=== PATIENT | female | born 1960 | race Caucasian/White ===

== ENCOUNTER 2016-12-10 13:04 | Observation (INO) | payer OTHER ==
[~2016-12-10] VITALS: Ht 157.5 cm; Wt 108.4 kg
[~2016-12-10 13:04] MED LIST: NOMED
[2016-12-10 13:36] VITALS: BP 136/75; PULSE 88; RESP 18; O2SAT 98
--- NOTE | 2016-12-10 13:39 | ED.REPORT ---
HPI-Extremity Problem Lower Date of Service Dec 10, 2016 ED Provider: Dr. Guerra Pt is a 56 y/o female presenting to the ED via EMS c/o right hip pain secondary to mechanical ground level fall at 11:30. The fall occurred because she missed the last stair step at work and fell onto her right hip. She has been able to bear weight but has not been able to ambulate since the injury. She is not on anticoagulants. Pt denies any other sites of injury or pain, syncope, numbness or weakness of the RLE. Nursing Notes Stated Complaint: GLF Chief Complaint: Extremity Trauma Nursing Notes Reviewed: Yes Allergies: Coded Allergies: No Known Allergies (Verified , 12/10/16) Miscellaneous Medications No Historical Medication (No Historical Medication) Ea General Time Seen by MD: 13:39 Chief Complaint Hip injury right Hx Obtained From: Patient, EMS Arrived By: Ambulance Onset Occurred: 1 - 4 hours ago Symptom Duration: Since onset Caused by: Fall on ground Location: : Hip right Quality: Painful Severity: Current: Moderate Severity: Maximum: Moderate Exacerbated by: Range of motion Recent Healthcare: No recent doctor visit, No recent hospitalization Similar Sx Previous: No Past Medical History Past Medical History None reported Past Surgical History None reported Smoking History Unknown if Ever Smoker Ambulatory Status Independent Review of Systems Constitutional: Denies: Chills, Fever Musculoskeletal: Reports: Extremity pain, Joint pain, Denies: Extremity swelling Skin: Denies Diaphoresis, Denies Rash Neurologic: Denies: Numbness, Syncope, Weakness Complete sys rev & neg: except as marked. Respiratory: Denies: Non-productive cough, Shortness of breath Cardiovascular: Denies: Chest pain, Palpitations, Syncope GI: Denies: Abdominal pain, Diarrhea, Nausea, Vomiting Physical Exam Initial Vital Signs Vital Signs (First) Date Time Temp Pulse Resp B/P Pulse Ox O2 Delivery O2 Flow Rate FiO2 12/10/16 13:36 36.6 88 18 136/75 98 Room Air Initial VS: Reviewed, Vital signs normal Head / Eyes: Atraumatic, Normocephalic, PERRL ENT: Mucous membranes moist, Conjunctiva normal, No scleral icterus Neck: Supple, Full range of motion Respiratory: Breath sounds normal, Clear to auscultation, No respiratory distress Cardiovascular: Regular rate & rhythm, Heart sounds normal, Intact distal pulses Abdomen / GI: Soft, Non-tender, No guarding, No rebound, No distention Upper Extremities: Vascular intact, Neuro intact, No swelling, No tenderness Skin: Warm, Dry, No cyanosis Neurologic: Alert, Oriented, Nonfocal Psychiatric: Mood/affect normal, Behavior normal, Normal thought content Lower Extremity / Pelvis / MS: No deformity, Neurologic intact, Vascular intact , No compartment syndrome, No edema, Pelvis stable RLE: No shortening, no rotation Right hip mildly tender to touch Interpretation & Diagnostics Interpretation & Diagnostics: MRI pelvis- non contrast 1. Multiple nondisplaced fractures of the pelvic ring including fractures of the left superior pubic ramus medially, right superior pubic ramus at the junction with the acetabulum, and the right sacral ala. 2. Muscle strains in the adductor compartment bilaterally. 3. Edema in the left femoral head as well as a probable geode along the superior articular surface likely associated with osteoarthritic changes. X-Ray Interpretation Xray Interpretation: IMPRESSION: 1. No displaced right fracture is evident. 2. Mild degenerative changes of the right hip. 3. Moderate degenerative changes of the left hip have significantly progressed since 2012. Lucency involving the left femoral head probably is degenerative. However, dedicated CT or MR imaging on a nonemergent basis is recommended for further evaluation. Dictated by: Dale Pate M.D. on 12/10/2016 at 13:38 Approved by: Dale Pate M.D. on 12/10/2016 at 13:39 X-Ray Ordered: Pelvis, Hip right Interpretation / Wet Read by: Interpret - Radiologist Re-Eval/Medical Decision Source of Hx: EMS Re-Evaluation/Progress : Time of Eval: 15:39 Re-Evaluation/Progress Note: Failed road test. Will obtain MR of pelvis. She agrees with plan. Consultation #1: Referral / Consult Name: Aravind Terrell MD Consulted With: Orthopedic Drafter Chief Design: Will see patient Note: Case discussed and imaging reviewed. Stable fractures not expected to cause significant bleeding. Admit to hospitalist, check CBC in am. Consultation #2: Referral / Consult Name: Danny Anaya MD Consulted With: Hospitalist Drafter Chief Design: Accepts admit Counseled Regarding: Diagnosis Discharge & Departure Impression: Primary Impression: Pelvic fracture Encounter type: initial encounter Pelvic bone location: multiple parts Fracture type: closed Fracture alignment: without disruption of pelvic ring Qualified Code: S32.82XA - Multiple fractures of pelvis without disruption of pelvic ring, initial encounter for closed fracture Disposition: ADMITTED TO HOSPITAL Discharge Condition All VS Reviewed: Yes Condition: Stable Referrals: Cammy Groves (PCP) Miguel Attestation Portions of this note were transcribed by Stalin Brar. I, Dr. Guerra personally performed the history, physical exam and medical decision-making; I reviewed and confirmed the accuracy of the information in the transcribed note. Signed by Miguel Israel, 12/10/16 - 1400 copies to: Cammy Groves Donald L MD Dec 10, 2016 13:39 STALIN BRAR Dec 10, 2016 13:46
[2016-12-10] MEDS ORDERED: oxyCODONE-Acetamin 5-325 mg Tablet PO ONE (13:45)
--- NOTE | 2016-12-10 14:41 | DRSVH ---
PROCEDURE: X-RAY PELVIS W/LAT HIP (RT) ([id number]) INDICATIONS: fall and R hip pain TECHNIQUE: AP pelvis with lateral view(s) of the right hip(s). COMPARISON: [facility], CT, ABD/PELVIS W/CON (PNL), 08/10/2013, 16:34. FINDINGS: Bones: No acute fracture or dislocation is evident involving the right hip. There are mild degenerat gregory changes of the right hip. No suspicious osseous lesions are present. Moderate degenerative pwoers ges of the left hip are present. Lucency overlying the femoral head probably is degenerative in natu re. There are at least mild degenerative changes of the imaged lower lumbar spine. Soft tissues: The visualized bowel gas pattern is normal. No suspicious soft tissue calcifications. IMPRESSION: 1. No displaced right fracture is evident. 2. Mild degenerative changes of the right hip. 3. Moderate degenerative changes of the left hip have significantly progressed since 2012. Lucency involving the left femoral head probably is degenerative. However, dedicated CT or MR imaging on a n onemergent basis is recommended for further evaluation. Dictated by: Dale Pate M.D. on 12/10/2016 at 13:38 Approved by: Dale Pate M.D. on 12/10/2016 at 13:39
[2016-12-10 16:28] VITALS: BP 128/74; PULSE 81; RESP 16; O2SAT 98
--- NOTE | 2016-12-10 19:12 | DRSVH ---
PROCEDURE: MRI PELVIS WITHOUT CONTRAST ([id number]) INDICATIONS: R hip pain/unable to amb post fall TECHNIQUE: Noncontrast coronal and axial T1 spin echo and STIR through the bony pelvis. COMPARISON: [facility], CR, XR PELVIS W LATERAL HIP RT, 12/10/2016, 14:04. FINDINGS: Image quality: Excellent. Bones: Bone marrow of the pelvic ring, sacrum, and proximal femurs demonstrate normal overall signal . There are relatively nondisplaced fractures of the left superior pubic ramus medially, the right s uperior ramus at the junction with the acetabulum, and the right sacral ala. No femoral neck fractur es. There is edema in the left femoral head associated with a prominent subchondral cyst along the s uperior articular surface. There is no extending along the superior articular surface with mild oste ophytosis. Subchondral edema is also noted in the left acetabulum. Tendons: The gluteus medius and minimus tendons appear intact, without associated muscle atrophy. T here is minimal peritendinous edema adjacent to the greater trochanter bilaterally. The nearby proxi mal iliotibial band also appears intact. The iliopsoas tendons appear intact, without adjacent bursa l fluid collections or evidence for impingement syndrome. The origin of the hamstring tendon is inta ct at the ischial tuberosity, as well as the associated sacrotuberous ligament. The straight and ref lected heads of the rectus femoris muscle origin appear intact, as well as the conjoint tendon. Soft tissues: There is edema within the adductor compartment bilaterally consistent with muscle strai ns. No joint effusions. No free pelvic fluid. Bladder wall thickness is normal. Genitourinary str uctures and bowel loops appear normal where visualized. IMPRESSION: 1. Multiple nondisplaced fractures of the pelvic ring including fractures of the left superior pubic ramus medially, right superior pubic ramus at the junction with the acetabulum, and the right sacral ala. 2. Muscle strains in the adductor compartment bilaterally. 3. Edema in the left femoral head as well as a probable geode along the superior articular surface l ikely associated with osteoarthritic changes. Dictated by: Pillo Chang M.D. on 12/10/2016 at 19:04 Approved by: Pillo Chang M.D. on 12/10/2016 at 19:10
[2016-12-10] MEDS ORDERED: Ondansetron 2 mg/mL 2 mL Inj IV PRN (19:30)
[2016-12-10 19:55] VITALS: BP 126/68; PULSE 76; RESP 15; O2SAT 98
[2016-12-10 20:10] LABS: BASOPHILS % (AUTO) 0.4 % (0-3); EOSINOPHILS % (AUTO) 0.8 % (0-5); MONOCYTES % (AUTO) 5.4 % (4-12); Mean Corpuscular Hemoglobin 26.4 pg (27.0-35.0); Mean Corpuscular Volume 82.6 fL (81-100); NEUTROPHILS % (AUTO) 72.7 % (40-74); Platelet Count 299 bil/L (150-400)
[2016-12-10] MEDS ORDERED: IBUP200C PO (20:19)
[2016-12-10] MEDS ORDERED: OXYM30SP18 NS (20:19)
[2016-12-10] MEDS ORDERED: Ondansetron 2 mg/mL 2 mL Inj IVPUSH PRN ×2 (20:40→21:45)
[2016-12-10] MEDS ORDERED: oxyCODONE-Acetamin 5-325 mg Tablet PO PRN (20:40)
[2016-12-10] MEDS ORDERED: Alum-Mag Hydrox-Simeth 30 mL Suspension PO PRN ×2 (20:40→21:45)
[2016-12-10 21:02] VITALS: BP 126/68; PULSE 76; RESP 15; O2SAT 98
[2016-12-10 21:29] VITALS: BP 119/79; PULSE 91; RESP 20; O2SAT 97
[2016-12-10] MEDS ORDERED: Polyethylene Glycol (PEG) 17 Gm Powder PO PRN (21:45)
--- NOTE | 2016-12-10 21:49 | PCM.HPMED ---
Subjective Date of Service Dec 10, 2016 Primary Provider: Admitting Physician: Danny Anaya MD Primary Care Physician: Nopcp Attending Physician: Danny Anaya MD Chief Complaint: fall R hip pain History of Present Illness: 56yo lady with no reported medical hx. walking down stairs tripped fell on R side. no LOC, no head trauma. no chest pain, lightheadedness. pain moderate to severe when moving, cannot ambulate. pain ok if she lies still. at baseline no exertional symptoms such as chest pain , lightheadenss, dyspnea. able to walk 2 blocks without rest. Review of Systems: Positive Review of Symptoms mentioned and elaborated on in HPI. Head: Denies H/A, trauma, loss of consciousness. Eyes: Denies visual loss, diplopia. Ears: Denies: deafness, tinnitis, discharge, pain Nose: Denies discharge, obstruction, epistaxis Mouth: Denies sores, gingival bleeding, jaw pain Neck: Denies stiffness, issues swallowing. Respiratory: Denies dyspnea, cough, sputum. Cardiovascular:Denies CP, palpitations, orthopnea, peripheral edema Gastrointestinal: Denies melena, abd pain, n/v/d Genitourinary: Denies dysuria, discharge. Skin: Denies: lesions, rashes, pruritus. Musculoskeletal: see hpi Neuro: Denies numbness, tingling, weakness. Psyc: Currently denies feelings of anxiety, depression. Allergies Coded Allergies: No Known Allergies (Verified , 12/10/16) Home Medications denies PMH denies Surgical History knee, wrist surgery Family History mom dm2 Social History Smoking Status: Unknown if Ever Smoker Exam Vital Signs Vital Sign - Last Date Time Temp Pulse Resp B/P Pulse Ox O2 Delivery O2 Flow Rate FiO2 12/10/16 21:29 36.6 91 20 119/79 97 Room Air Exam General: No acute distress. Awake, alert. Head: Normocephalic, atraumatic. Eyes: White sclera. Conjunctiva non-injected. Mouth & Throat: No Bleeding. No erythema, lesions, exudates visualized. Neck: No tender adenopathy. Trachea midline. Respiratory: Clear to auscultation bilaterally. Symmetric chest expansion. Regular work of breathing without use of accessory muscles. Cardiovascular: S1, S2. Regular rate and rhythm without murmurs, rubs or gallops. Pulses 2+ equal bilaterally. Abdomen: Normal bowel sounds x4 quadrants. Soft, non-tender, non-distended. Extremities: tenderness R hip, proximal femur. Skin: Intact, no lesions, no rash. Neurologic: Awake, alert, oriented x3. No focal deficits. Psychiatric: Appropriate mood and affect. Cooperative. Lab and Diagnostics Result Diagram: 12/10/16199912/10/161999 X-Rays, CTs and MRIs pelvis mri as read by the radiologist fashion editor: 1. Multiple nondisplaced fractures of the pelvic ring including fractures of the left superior pubic ramus medially, right superior pubic ramus at the junction with the acetabulum, and the right sacral ala. 2. Muscle strains in the adductor compartment bilaterally. 3. Edema in the left femoral head as well as a probable geode along the superior articular surface likely associated with osteoarthritic changes. Assessment & Plan -- fall -- Multiple nondisplaced fractures of the pelvic ring including fractures of the left superior pubic ramus medially, right superior pubic ramus at the junction with the acetabulum, and the right sacral ala. pain control, bedrest. dvt prophylaxis orthopedics called by admitting er physician will see in am. -- f/e/n: npo aftermidnight -- dvt prophylaxis: lovenox Dipso: Admit to obs with expected length of stay < 2 midnights. Danny Anaya MD Dec 10, 2016 21:49
[2016-12-10] MEDS: HYDROcodone-APAP 5-325 mg Tablet PO PRN (22:06)
[2016-12-11 01:12] VITALS: BP 107/70; PULSE 80; RESP 18; O2SAT 97
--- NOTE | 2016-12-11 01:49 | NUR ---
Arrival to unit Patient arrived to floor at 2120 from the ED via gurney. A slider board was used to transfer her to the hospital bed. Patient is A&OX3, and pleasant this evening. States that when lying still pain is very minimal, and has denied being turned to complete full assessment. Per report patient has denied an IV start as well at this time. Has been NPO since midnight and remains on bed rest. 1 tab norco PO has been given for pain and upon reassessment patient was sleeping and appears comfortable. Will continue to monitor, and continue Q1 hour checks. Bed locked and in low position and call light is within reach. Addendum: 12/11/16 at 0547 by HOLLY MILLAN RN This morning patient has refused using a bed swenson, and states that when she needs to go to the bathroom that she will let us know.
[2016-12-11 05:20] VITALS: BP 115/74; PULSE 87; RESP 18; O2SAT 95
[2016-12-11 06:07] LABS: BASOPHILS % (AUTO) 0.6 % (0-3); EOSINOPHILS % (AUTO) 2.4 % (0-5); MONOCYTES % (AUTO) 7.8 % (4-12); Mean Corpuscular Hemoglobin 26.3 pg (27.0-35.0); Mean Corpuscular Volume 83.6 fL (81-100); NEUTROPHILS % (AUTO) 55.5 % (40-74); Platelet Count 313 bil/L (150-400)
[2016-12-11 06:22] LABS: Magnesium 2.1 mg/dL (1.6-2.6)
[2016-12-11 10:00] VITALS: BP 114/76; PULSE 84; RESP 17; O2SAT 92
--- NOTE | 2016-12-11 11:25 | PCM.PNMED ---
Subjective Date of Service Dec 11, 2016 Subjective pain is relatively controlled at rest, but increase with movement, able to move her legs but weak. explained that this fracture needs conservative tx, agreed on plan Exam Vital Signs Vital Sign - Last Date Time Temp Pulse Resp B/P Pulse Ox O2 Delivery O2 Flow Rate FiO2 12/11/16 10:00 36.9 84 17 114/76 92 Room Air Intake and Output 12/10/16 12/10/16 12/11/16 Cumulative From/Thru 15:00 23:00 07:00 12/10/16 13:36 - 12/11/16 06:43 Intake Total 300 ml 300 ml Output Total 0 ml 0 ml Balance 300 ml 300 ml Intake Oral 300 ml 300 ml Output Urine Total 0 ml 0 ml # Voids 0 0 # Bowel Movements 0 0 Exam NAD, comfortably laying down on the bed no JVD, MMM, no LAD RRR, nl s1, s2 no mrg CTAB, no w,c S,ND,NT,normoactive BS+ warm, no edema, pulses 2/2 MSK: motor 4/5 bilaterally, limited due to pain, IVs and Medications Medications Reviewed: Medications were reviewed in detail Lab and Diagnostics Result Diagram: 12/11/16 0550 12/11/16 0550 X-Rays, CTs and MRIs pelvis mri as read by the radiologist labor relations representative: 1. Multiple nondisplaced fractures of the pelvic ring including fractures of the left superior pubic ramus medially, right superior pubic ramus at the junction with the acetabulum, and the right sacral ala. 2. Muscle strains in the adductor compartment bilaterally. 3. Edema in the left femoral head as well as a probable geode along the superior articular surface likely associated with osteoarthritic changes. Assessment & Plan 56yo lady with no reported medical hx presented after fall when walking down stairs, tripped fell on R side acute, active s/p fall, resultant pelvic fx, POA, CT showed Multiple nondisplaced fractures of the pelvic ring including fractures of the left superior pubic ramus medially , right superior pubic ramus at the junction with the acetabulum, and the right sacral ala. -will focus on pain control with naproxen, tylenol standing, -percocet prn for pain with movement, -start PT as tolerated dvt ppx: LMWH diet: regular dispo: 2-3more days VTE Mechanical Devices: Intermittant Pneumatic CD Time spent 35min Venita Euceda MD Dec 11, 2016 10:55
[2016-12-11] MEDS: HYDROcodone-APAP 5-325 mg Tablet PO PRN ×2 (12:37→17:41)
--- NOTE | 2016-12-11 13:11 | CONS ---
[address] [address] CONSULTATION REPORT PATIENT: ANTHONY MENDOZA : 1960 MR#: [id number] ADMIT: 12/10/2016 JOB ID: [id number] DATE OF SERVICE: 12/11/2016 INPATIENT CONSULTATION:ORTHOPEDIC CPT code 94020 CHIEF COMPLAINT: A 56-year-old female, whom I was asked to see in orthopedic consultation by emergency department staff as well as hospitalist service, Dr. Danny Anaya. The patient tripped down some stairs, falling onto her right side with no loss of consciousness. She sustained nondisplaced fractures of left superior pubic ramus, right superior pubic ramus, and the right sacral ala. There was no widening of the symphysis pubis. The patient was admitted to the hospital with pain and difficulty trying to ambulate due to significant discomfort. FAMILY HISTORY: Positive for a mother with diabetes mellitus. SOCIAL HISTORY: No history of smoking to knowledge. REVIEW OF SYSTEMS: Head: No headache, no dizziness. Eyes: No visual loss. Ears: No decreased hearing. Nose and throat: No pain. Respiratory: No shortness of breath. Cardiovascular: No chest pain. GI: No nausea, vomiting. : No dysuria. Musculoskeletal: Pain in the pelvis. No numbness in the legs. Neuro: No headache or dizziness. Psychiatric: No anxiety or depression. PHYSICAL EXAMINATION: A 157 cm tall, 108 kg female. Blood pressure 114/76, pulse is 17, respiration 84, temperature 36.9. The patient is alert and oriented. She has normal neurovascular exam, lower extremities. Minimal discomfort to palpation over the iliac wing area. Most of her pain is over the pubic rami region. Minimal discomfort over the right sacral area over the right SI joint.calves soft. Pulses full. Able to move both lower extremities.Able to move both hips well. The pain is mainly over the ischial tuberosities. LABORATORY TESTING: White count 11,000, hematocrit 38.5 and hemoglobin 12.3. Labs were repeated at white count of 8400, hemoglobin 12.2, and hematocrit of 38.8. She is stable hemodynamically. X-rays and the MRI show that she has a nondisplaced fracture of the left superior pubic ramus, right superior pubic ramus, and the right sacral ala. There is some subchondral edema along the left acetabulum. IMPRESSION: Nondisplaced pubic rami fractures. Small sacral ala fracture. PLAN: The patient may be mobilized with physical therapy with a rolling walker. The patient should also continue on DVT prophylaxis. Mobilizing the patient would be in her best interest. She may be seen again in followup in the orthopedic clinic at [facility] in about three weeks with repeat x-rays. She should use the rolling walker. CC: ANITA Orthopedic CC: Letty Hopkins
--- NOTE | 2016-12-11 13:54 | NUR ---
Activity Pt was refusing to let us turn her or get on a bed swenson. Pt stated that she didn't have any pain. Educated pt on pain medication use. I asked if she has pain when she is moving and she said it is a 2/10. Gave pt scheduled Tylenol, Flexeril, and naproxen. Pt stated she felt better. Encourage pt again to get oob and use BSC. Pre medicated pt with 1 [place] after educating pt on pain medication use again. Pt finally got oob and used BSC FWW SBA. Tolerated activity okay. Pt is afraid to move because of pain. Pt able to void 400. Brought pt water and educated her on keeping hydrated. Pt to see PT soon and will encourage pt to drink fluids and ambulate. Care continues.
--- NOTE | 2016-12-11 15:05 | NUR ---
Social Work- Brief Note Data: EMR reviewed. Pt is a 56 year old female admitted 12/10/16 for pelvic fracture per H&P. Pt's payor is [employer] with [employer] as secondary. Pt's PCP is [facility], but pt has not seen her new PCP since her last one retired. SW met with pt at bedside regarding discharge plan, SW role explained. Pt alert and oriented x3. 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 Additional family members live in a home on the property, where they are able to offer pt any support she may need at discharge. Pt has a walker and bedside commode available for use after discharge but does not use them at baseline. 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 Pt has no DPOA, declined further information. NOK is Iggy Manzano, . PT evaluation is pending. Pt to discharge home with to transport via POV. No anticipated discharge needs. SW will continue to follow if needs arise. 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 Plan: Pt to discharge home with to transport via POV. No anticipated discharge needs. SW will continue to follow. JH Scott
--- NOTE | 2016-12-11 15:21 | NUR ---
Evaluation completed. Please go to "Notes" then click on "Assessments and Notes" (bottom left corner of screen). Then select appropriate discipline tab on top of screen.
[2016-12-11 18:27] VITALS: BP 128/79; PULSE 95; RESP 18; O2SAT 94
[2016-12-11 20:25] VITALS: BP 127/81; PULSE 89; RESP 17; O2SAT 94
--- NOTE | 2016-12-12 03:35 | NUR ---
Activity At beginning of shift patient was encouraged to get up void. Patient denied needing to void and stated that she would let the nurse know when she needed assistance. Fluids have been heavily encouraged throughout the shift. At 0300, patient still had not voided, and so she was assisted to the bathroom, SBA with the FWW and was able to void 500cc of concentrated odorous urine. Patient denies burning, urgency, or discomfort. Again patient was encouraged to let nursing staff know when she needed to void, and to drink more fluids. Fresh ice water provided. Will continue education, and continue to monitor.
[2016-12-12 05:27] VITALS: BP 132/74; PULSE 81; RESP 17; O2SAT 95
[2016-12-12] MEDS ORDERED: Acetaminophen PO (11:25)
[2016-12-12] MEDS ORDERED: ENOX40DI8 SUBQ (11:25)
[2016-12-12] MEDS ORDERED: CYCL10TA9 PO (11:25)
[2016-12-12] MEDS ORDERED: NAPR250T PO (11:25)
[2016-12-12] MEDS ORDERED: PANT20T PO (11:25)
--- NOTE | 2016-12-12 11:28 | NUR ---
Social Work- Readiness for Discharge Data: EMR reviewed. Pt is on day 2 of hospitalization for pelvic fracture per H&P. Pt is not medically stable, anticipate discharge later today or tomorrow. PT saw patient, recommending stair training and further progression of ambulation. Pt has extensive family support at home. Pt to discharge home with to transport via POV. No anticipated discharge needs. SW will continue to follow if needs arise. 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 Plan: Pt to discharge home with to transport via POV. No anticipated discharge needs. SW will continue to follow. JH Scott
--- NOTE | 2016-12-12 11:29 | PCM.DIMED ---
Discharge Instructions Date of Service Dec 12, 2016 Dates of Hospitalization Dec 10, 2016 at 20:21 Discharge Diagnosis Discharge Diagnosis pelvic fracture s/p mechanical fall Medication Instructions Please take Naproxen, tylenol, Flexeril as directed for your pain, You were also given Protonix, please take with Naproxen to protect your stomach Diet No restrictions Activity No restrictions Patient Instructions You were hospitalized with fracture in your pelvis from fall, didn't require surgery, Pain was controlled well. Please note that you need to continue heparin shots to prevent blood clots forming given your limited mobility. This was recommended by Orthopedic surgeon. Follow-up plan Please follow up with in 3weeks Follow-up Provider: Aravind Terrell MD Follow-up with PCP in: 3 weeks Venita Euceda MD Dec 12, 2016 11:28
--- NOTE | 2016-12-12 13:55 | PCM.PNORTH ---
Subjective Date of Service: Dec 12, 2016 Visit Information: Reason for Visit Pelvic Fracture Surgery/Surgery Date Post-Op Day # Date of Admission: Dec 10, 2016 at 20:21 Hospital Day # 2 Subjective Patient states she is having no pain unless she is ambulating. She states she has gotten up to void her bladder multiple times throughout the night and into the morning and states it is painful but she is able to do it. She states she is feeling stronger today than yesterday. She has no concerns and all questions were answered. Postop General: No Complaints, No Shortness of Breath, No Chest Pain Pain Management: PO Objective Exam Objective Laying in bed Vital Signs and I/O Vital Sign - Last Date Time Temp Pulse Resp B/P Pulse Ox O2 Delivery O2 Flow Rate FiO2 12/12/16 05:27 36.6 81 17 132/74 95 Room Air Intake and Output 12/11/16 12/11/16 12/12/16 Cumulative From/Thru 14:59 22:59 06:59 12/10/16 13:36 - 12/12/16 05:27 Intake Total 0 ml 400 ml 700 ml Output Total 500 ml 500 ml Balance 0 ml -100 ml 200 ml Intake Oral 400 ml 700 ml IV Total 0 ml 0 ml Output Urine Total 500 ml 500 ml # Voids 0 # Bowel Movements 1 1 Result Diagram: 12/11/16 0550 12/11/16 0550 General Appearance: Alert, Oriented X3, Cooperative, No Acute Distress Extremities: Distal Pulses Palpable, No Compartment Syndrom Noted, Thigh & Calf Soft/Nontender Postop Sensory Motor: Distal Motor Intact, Movement in Toes, Distal Sensation Intact, NVI Distally Assessment & Plan Impression Nondisplaced pubic rami fractures. Small sacral ala fracture. Problems: Plan Weightbearing: Weightbearing as tolerated with a front wheeled walker. Continue oral pain management. Continue DVT prophy. Follow up at [facility] in 3 weeks with repeat xrays with Dr. Terrell. Lucretia Byrnes PA-C Dec 12, 2016 13:55
[2016-12-12] MEDS ORDERED: OXYC1TAB24 PO (14:17)
--- NOTE | 2016-12-12 14:40 | NUR ---
DISCHARGE Reviewed patient discharge information and instructions with patient. Verbalized understanding. Sent with hard copy Rx for pain medications and lovenox injections. Demonstrated how to administer lovenox injection during am administration. Patient verbalized understanding. Patient got dressed with minimal assistance. Stood and transferred into wheelchair with SBA. Taken outside to personal vehicle, left with all personal belongings.
--- NOTE | 2016-12-13 23:00 | PCM.DC.MED ---
Discharge Summary Date of Service Dec 12, 2016 Dates of Hospitalization Date of Hospital Admission Dec 10, 2016 at 20:21 Date of Discharge: Dec 12, 2016 Providers: Admitting Physician: Danny Anaya MD Primary Care Physician: Nopcyril Attending Physician: Danny Anaya MD Diagnosis at Time of Discharge Diagnosis at Time of Discharge pelvic fracture s/p mechanical fall Consultations Orthopedic Procedures XRay, CTs & MRIs pelvis mri as read by the radiologist filteration operator: 1. Multiple nondisplaced fractures of the pelvic ring including fractures of the left superior pubic ramus medially, right superior pubic ramus at the junction with the acetabulum, and the right sacral ala. 2. Muscle strains in the adductor compartment bilaterally. 3. Edema in the left femoral head as well as a probable geode along the superior articular surface likely associated with osteoarthritic changes. Brief History HPI obtained on 12/10 by 56yo lady with no reported medical hx. walking down stairs tripped fell on R side. no LOC, no head trauma. no chest pain, lightheadedness. pain moderate to severe when moving, cannot ambulate. pain ok if she lies still. at baseline no exertional symptoms such as chest pain , lightheadenss, dyspnea. able to walk 2 blocks without rest. Hospital Course 56yo lady with no reported medical hx presented after fall when walking down stairs, tripped fell on R side acute s/p fall, resultant pelvic fx, POA, CT showed Multiple nondisplaced fractures of the pelvic ring including fractures of the left superior pubic ramus medially , right superior pubic ramus at the junction with the acetabulum, and the right sacral ala. Pain was controlled with naproxen, tylenol, flexeril, rarely required percocet. Lovenox was also given for dvt ppx. Patient was consulted by Orthopedic, recommended conservative tx. patient was able to ambulate upon d/c. Exam Vital Signs (Last) Date Time Temp Pulse Resp B/P Pulse Ox O2 Delivery O2 Flow Rate FiO2 12/12/16 05:27 36.6 81 17 132/74 95 Room Air Exam NAD, comfortably laying down on the bed no JVD, MMM, no LAD RRR, nl s1, s2 no mrg CTAB, no w,c S,ND,NT,normoactive BS+ warm, no edema, pulses 2/2 MSK: motor 5/5 bilaterally,normal gait Test 12/10/16 20:00 12/11/16 05:50 Total Bilirubin 0.4mg/dL (0.0-1.2) Aspartate Amino Transf (AST/SGOT) 21U/L (0-50) Alanine Aminotransferase (ALT/SGPT) 24U/L (0-32) Alkaline Phosphatase 124U/L (25-150) Total Protein 7.2g/dL (6.4-8.4) Albumin 3.6g/dL (3.4-5.0) Hold Mathur Top Tube Received (Received) White Blood Count 8.4th/mm3 (3.8-10.1) Red Blood Count 4.64mil/mm3 (3.90-5.20) Hemoglobin 12.2g/dL (12.0-15.6) Hematocrit 38.8% (35.0-46.0) Mean Corpuscular Volume 83.6fL (81-100) Mean Corpuscular Hemoglobin 26.3pg (27.0-35.0) Mean Corpuscular Hemoglobin Concent 31.4% (32.0-37.0) Red Cell Distribution Width 15.1% (12.3-15.4) Platelet Count 313bil/L (150-400) Neutrophils (%) (Auto) 55.5% (40-74) Lymphocytes (%) (Auto) 33.1% (14-46) Monocytes (%) (Auto) 7.8% (4-12) Eosinophils (%) (Auto) 2.4% (0-5) Basophils (%) (Auto) 0.6% (0-3) Sodium Level 141mEq/L (134-144) Potassium Level 4.3mEq/L (3.5-5.2) Chloride Level 104mEq/L (97-108) Carbon Dioxide Level 23mmol/L (18-29) Blood Urea Nitrogen 9mg/dL (6-24) Creatinine 0.47mg/dL (0.57-1.00) Estimat Glomerular Filtration Rate 196mL/min (>59) Glucose Level 102mg/dL (60-99) Calcium Level 9.2mg/dL (8.5-10.1) Magnesium Level 2.1mg/dL (1.6-2.6) Discharge Medications Discharge Medications ([Acetaminophen]) 325 MG TABLET 650 MG PO Q6H Prescribed by: VENITA LYNCH MD Cyclobenzaprine (Cyclobenzaprine) 10 Mg Tablet 10 MG PO TID Prescribed by: VENITA LYNCH MD Enoxaparin Sodium (Enoxaparin Sodium) 40 Mg/0.4 Ml Syringe 40 MG SUBQ DAILY Prescribed by: VENITA LYNCH MD Naproxen (Naproxen) 250 Mg Tablet 500 MG PO BIDWM Prescribed by: VENITA LYNCH MD Pantoprazole DR (Protonix) 20 Mg Tablet 20 MG PO DAILY Prescribed by: VENITA LYNCH MD As needed Oxymetazoline HCl (Nasal Henderson Sinus) 30 Ml Henderson 1 SPRAY NS DIRECTED PRN PRN For Congestion (Reported) oxyCODONE-Acetaminophen 5-325 mg (oxyCODONE-Acetaminophen 5-325 mg) 1 Each Tablet 1 TAB PO Q4H PRN PRN For Pain Prescribed by: VENITA LYNCH MD Additional med instructions Please take Naproxen, tylenol, Flexeril as directed for your pain, You were also given Protonix, please take with Naproxen to protect your stomach Followup Plan Disposition: home Follow-up plan Please follow up with in 3weeks Discharge Diet: No restrictions Discharge Activity: No restrictions Patient Instructions You were hospitalized with fracture in your pelvis from fall, didn't require surgery, Pain was controlled well. Please note that you need to continue heparin shots to prevent blood clots forming given your limited mobility. This was recommended by Orthopedic surgeon. Follow-up Provider: Aravind Terrell MD Follow-up with PCP in: 3 weeks Time spent 65min Venita Lynch MD Dec 12, 2016 14:00
== END 2016-12-12 14:28 | disposition home or self-care (01) ==
LOC: SED 13:04 → OSC 20:21
PROVIDERS: ADMIT Family Medicine; ATTEND Family Medicine
DX: S32.82XA Multiple fractures of pelvis without disruption of pelvic ring, initial encounter for closed fracture (principal); W10.9XXA Fall (on) (from) unspecified stairs and steps, initial encounter; Y92.59 Other trade areas as the place of occurrence of the external cause; Y93.89 Activity, other specified; Y99.0 Civilian activity done for income or pay
CPT/HCPCS: 36415; 72195; 73501; 80048; 80053; 83735; 85025; 97161; 97530; 99285; G0378; J1650